=== PATIENT | female | born 1975 | race Caucasian/White ===

== ENCOUNTER 2016-09-13 22:58 | Inpatient (IN) | payer OTHER ==
[~2016-09-13] VITALS: Ht 165.1 cm; Wt 71.2 kg
[~2016-09-13 22:58] MED LIST: MULT-513 PO
[2016-09-13] MEDS ORDERED: LACTATED RINGER'S 1000ML 1,000 ML IV PRN (23:42)
[2016-09-13] MEDS ORDERED: LACTATED RINGER'S 1000ML 1,000 ML IV SCH (23:42)
[2016-09-14 00:11] VITALS: Ht 165.1 cm; Wt 71.2 kg
[2016-09-14] MEDS ORDERED: DOCO1CAP10 (00:11)
[2016-09-14 00:23] LABS: HEMATOCRIT 33.8 % (37-47); MEAN CELL VOLUME 91.6 fL (80-100); MEAN CORPUSCULAR HEMOGLOBIN 30.9 pg (25-34); MEAN CORPUSCULAR HGB CONC 33.7 g/dl (32-36); MEAN PLATELET VOLUME 10.8 fL (7.4-10.4); PLATELET COUNT 126 K/uL (130-400); RED BLOOD COUNT 3.69 M/uL (4.2-5.4); WHITE BLOOD COUNT 9.09 K/uL (4.8-10.8)
--- NOTE | 2016-09-14 01:37 | HISTORY & PHYSICAL EXAMINATION ---
DATE OF ADMISSION: 09/13/2016 CHIEF COMPLAINT: Rupture of membranes. HISTORY OF PRESENT ILLNESS: The patient is a 41-year-old 6, para 2, at 39 weeks and 3 days gestation, who presents to labor and delivery with leakage of fluid that began around 9:00 p.m. on the evening of admission. On arrival, she was grossly ruptured. She was found to be 4 cm dilated, 75% effaced, and -2 station. Clear amniotic fluid seen. She is GBS negative. Contractions are every 2-5 minutes. Her care has been uncomplicated. PAST MEDICAL HISTORY: Significant for 2 prior vaginal deliveries in 2006 and 2008 and 3 spontaneous miscarriages in 2004, 2005 and 2011. PAST SURGICAL HISTORY: She had her wisdom teeth removed. SOCIAL HISTORY: She denies tobacco, alcohol or drug use. MEDICATIONS: vitamins. ALLERGIES: CODEINE. LABORATORIES: Blood type is A negative, group B strep negative, rubella immune, hepatitis B surface antigen negative, RPR nonreactive, and HIV negative. PHYSICAL EXAMINATION: VITAL SIGNS: Blood pressure is 124/64, heart rate of 95, respiration rate of 18, temperature of 98.1. GENERAL: The patient is awake, alert and oriented x3. She is in mild to moderate distress from her contractions. HEART: Regular rate and rhythm. LUNGS: Clear to auscultation bilaterally. ABDOMEN: Gravid uterus, appropriate for gestational age. Bowel sounds present x4. EXTREMITIES: No clubbing, cyanosis or calf tenderness. VAGINA: She is 4 cm, 75% effaced, and -2 station. Clear amniotic fluid seen. heart tones are category 1. Contractions are every 2-5 minutes. ASSESSMENT AND PLAN: A 41-year-old 6, para 2, at 39 weeks and 3 days gestation, will be admitted to labor and delivery for spontaneous rupture of membranes. She currently does not want an epidural or medicine for pain control and is requesting to labor on her own. Will augment labor as needed and anticipate vaginal delivery.
[2016-09-14] MEDS ORDERED: OXYTOCIN 30 UNITS/500ML NSS IV ONE (02:17)
[2016-09-14] MEDS ORDERED: ACETAMINOPHEN 325 MG TAB PO PRN (03:15)
[2016-09-14] MEDS ORDERED: IBUPROFEN 600 MG TAB PO PRN (03:15)
[2016-09-14] MEDS ORDERED: LANOLIN OINT EXT PRN ×2 (03:15)
[2016-09-14] MEDS ORDERED: SUPERCREAM 0.870 % 15GM JAR EXT PRN (03:15)
[2016-09-14] MEDS ORDERED: OXYTOCIN 30 UNITS/500ML NSS IV PRN (03:15)
[2016-09-14] MEDS ORDERED: BENZOCAINE 20% AER SPR 82.5 GM CAN EXT PRN (03:15)
[2016-09-14] MEDS ORDERED: HYDROCORTISONE ACETATE 25 MG SUPP PR PRN (03:15)
[2016-09-14 05:45] VITALS: BP 130/55; PULSE 100; TEMP 36.7
--- NOTE | 2016-09-14 07:15 | DELIVERY SUMMARY ---
DATE OF OPERATION: 09/14/2016 TIME OF DELIVERY: 2:35 a.m. DELIVERY OF PLACENTA: 2:38 a.m. DELIVERY NOTE: The patient is a 41-year-old 6 para 2 at 39 weeks and 4 days gestation who was admitted to labor and delivery in active labor and spontaneous rupture of membranes. She progressed on her own. She did not receive an epidural for anesthesia. She reached complete dilation at 2:23 a.m. with the urge to push. She pushed to delivery at 2:35 a.m. She delivered a viable male infant in the right occiput anterior position. Nuchal cord x1 was reduced at delivery. Baby was delivered and placed on the patient's abdomen. Delayed cord clamping was performed. Cord was cut. Apgars were 8 at one minute, 9 at 5 minutes. Please see nursing notes for further baby assessment. Cord blood was then obtained and intact placenta with 3-vessel cord was delivered at 2:38 a.m. Ocytocin infusion was then begun. The lower uterine segment and vagina was cleared of any blood clots and debride. Exploration of the perineum noted a second-degree vaginal laceration which was repaired with 2-0 and 3-0 Vicryl suture in a normal fashion. Excellent hemostasis was noted. No other lacerations were seen. All sponge, instrument and needle counts were found to be correct x2. Estimated blood loss was 300 cc. Both patient and baby tolerated the delivery well and were in recovery with stable vital signs. I attest to the content of the Intraoperative Record and any orders documented therein. Any exceptio ns are noted below.
[2016-09-14] MEDS: PRENATAL VITAMIN TAB PO SCH (08:57)
[2016-09-14] MEDS: FERROUS SULFATE 325 MG TAB PO SCH (08:57)
[2016-09-14] MEDS: DOCUSATE SODIUM 100 MG CAP PO SCH ×2 (08:58→20:11)
[2016-09-14 09:00] VITALS: BP 104/65; PULSE 102; TEMP 36.3; O2SAT 98
[2016-09-14 12:30] VITALS: BP 105/65; PULSE 92; TEMP 36.8; O2SAT 97
[2016-09-14 16:15] VITALS: BP 106/67; PULSE 96; TEMP 36.8
[2016-09-14 20:30] VITALS: BP 115/69; PULSE 108; TEMP 37
[2016-09-14 23:35] VITALS: BP 109/65; PULSE 69; TEMP 36.9
[2016-09-15] MEDS ORDERED: MTR600X PO (07:04)
--- NOTE | 2016-09-15 07:05 | Discharge Instructions ---
Discharge Instructions Date of Service Sep 15, 2016. Admission Reason for Admission: Check Rupture Discharge Discharge Diagnosis / Problem: Vaginal Delivery Discharge Goals Goal(s): Routine recovery after delivery Medications Continue Dispensed Medications: supercream, dermaplast, tucks, lansinoh Activity Recommendations Activity Limitations: per Instructions/Follow-up section . Instructions / Follow-Up Instructions / Follow-Up ACTIVITY RECOMMENDATIONS: * Gradual return to full activity over the next 2-3 weeks. * No lifting - nothing heavier than baby over the next 2-3 weeks. * Do not engage in vigorous exercise, sexual activity or sports until cleared by your physician. * Do not drive or operate any motorized equipment until cleared by your physician. * You may shower/bathe daily. BREAST CARE: If you are not breast feeding: * Wear a supportive bra 24 hours a day for one to two weeks. * Avoid stimulating your breasts and nipples as much as possible during the first few weeks after delivery. * When taking a shower, have the warm water hit your back, not breasts. * When your breasts feel full, apply ice packs. Usually three to four times a day helps ease the discomfort. * Take a mild pain medication (Tylenol/Motrin) when you are uncomfortable. If breast feeding: * Use breast milk to lubricate nipples. Lansinoh cream may be used for sore nipples. You do not need to remove cream prior to breast feeding. If using a different brand of cream, check the label for directions regarding removal of cream prior to nursing. * Wear a supportive bra. * If having problems with breasts or breast feeding, call a bridal consultant or your health care provider. EPISIOTOMY CARE: After delivery, if you have an episiotomy (stitches), the following steps will ease discomfort and aid healing. * For the first 24 hours after delivery, place ice packs next to your episiotomy to help reduce swelling. * After the first 24 hour-period, sitz baths, either portable or in the tub, are suggested. A shower with a shower arm sprayed over the episiotomy may be comforting. * Stacy care should be done after each voiding and bowel movement. Squirt warm water from a plastic bottle over the perineum (region of the body between the anus and urinary opening) and pat dry. * Use Dermoplast to ease discomfort. Shake container. [place] directly over the episiotomy. * Place a Tucks on a clean sanitary pad next to your episiotomy. OVER THE COUNTER MEDICATION: * For discomfort or pain, you may use Acetaminophen (Tylenol), Ibuprofen (Advil ), or Naproxen (Aleve) following the package directions. * For constipation you may use Colace following the package directions. SPECIAL CARE INSTRUCTIONS: When you are discharged from the hospital, it is important for you to follow the instructions listed below: * During the first week at home, you should be able to care for yourself and your baby. In addition, the usual light household activities are encouraged. * Limit your activities to the way you feel. Do not try to clean the house or move furniture. Be sensible. * If you actively engage in sports and have done so up until the time of your delivery, you may resume these activities as soon as you feel able. This may take up to one month or even longer. Use good judgment. * Continue to take your vitamins for at least six weeks after the of your baby. * Your diet need not be limited unless you were on a special diet before your delivery. Breast-feeding mothers need around 2500 calories per day and at least 64-80 ounces of fluid per day (8 to 10 glasses). * You should eat foods from the four major food groups. Crash diets or fad diets are to be avoided. Eating lean meats, fresh fruits and vegetables, low-fat dairy products, high fiber foods and a regular exercise program, will help you get back to your pre- weight without putting your health at risk. * Constipation is sometimes a problem after delivery. Take a mild laxative as needed. If breast feeding, Milk of Magnesia is acceptable to use. You may use a suppository or Fleets enema if no episiotomy. * A daily shower or tub bath is suggested. Be sure to thoroughly and gently dry the perineum. * A bloody vaginal discharge will usually continue until around four weeks post . A small amount of bleeding may continue for as long as six weeks. Vaginal discharge changes from the bright red bleeding after delivery to pink then brownish and finally yellowish-pink before becoming white and disappearing. * Bleeding may increase with activity. Your first period may come in 4-8 weeks. If you are breast feeding, your period may be delayed even longer. * [place] (sex) can begin whenever both you and your partner feel comfortable and do not have any form of genital infection. It is recommended that you wait until after your return appointment and discuss with your physician. If you have questions, please talk to your health care practitioner. A condom should be used to prevent infection and . * Foreplay, gentle intercourse and lubrication is very important the first several times to prevent pain. A water-based lubricant such as K-Y jelly or Astroglide may be used. * Tampons may be used six weeks after delivery. * Douching should be avoided for 6 weeks after delivery. * If you have RH negative blood and your baby is RH positive, you will receive RHOGAM by injection prior to discharge. The nurse will give you a card to keep with you that has the date and place that you received RHOGAM after delivery. * During your care, you had a Rubella screen done to check for the presence of rubella antibodies in your blood. If your test was negative, you will receive a Rubella vaccine prior to discharge. This vaccine may cause a fever, soreness at the injection site and flu-like symptoms. If these symptoms persist, notify your health care practitioner. is not advised for three months after a Rubella vaccine. There is a higher chance of having a baby with defects if conceived within three months of getting the vaccine. * If you were discharged 24 hours from delivery or before 48 hours: Visiting nurses will come to your home 48 hours after discharge to assess you and your baby. The visiting nurse will meet with you while you are in the hospital to arrange a time and get directions to your home. * Verbalizes understanding of car seat law as reviewed with patient nursing. * Car Seat hand-out given and reviewed with patient by nursing. * Shaken baby information reviewed with patient by nursing. Call you doctor if: * Heavy bleeding (saturating several pads an hour) or passing clots the size of your fist. * A fever >101 degrees F (38.3 degrees C) on two occasions four hours apart and/or chills. * Unusual pain in the pelvic or vaginal areas. * "Baby Blues" lasting longer than two weeks. If you have any questions or concerns, call your health care practitioner at . FOLLOW-UP VISIT: * Please call the office at to schedule a 6 week examination. It is important you keep this appointment. * It is important for you to make arrangements for either yearly or twice yearly check-ups thereafter. Current Hospital Diet Patient's current hospital diet: Regular OB Diet Discharge Diet Recommended Diet: Regular OB Diet Pending Studies Studies pending at discharge: no Medical Emergencies . Who to Call and When: Medical Emergencies: If at any time you feel your situation is an emergency, please call 911 immediately. . Non-Emergent Contact Non-Emergency issues call your: Primary Care Provider, [place] Operator . . "Provider Documentation" section prepared by Nathan Richard. . VTE Core Measure Inpt VTE Proph given/why not?: Treatment not indicated
--- NOTE | 2016-09-15 07:13 | OB/GYN Progress Note ---
[facility] Progress Note Date of Service Sep 15, 2016. Subjective conversation w/ patient, physical exam Ambulation: ambulating normally Voiding: no voiding problems Passing Gas: Yes Diet Tolerance: Regular Diet Lochia: Moderate Feeding Type: Breast Feeding Pain: 3/10 Notes: Doing well, no concerns. Pain well controlled. Lochia moderate. Tolerating regular diet. Ambulating without difficulty. Objective Vital Signs Date Time Temp Pulse Resp B/P Pulse Ox O2 Delivery O2 Flow Rate FiO2 09/14/16 23:35 36.9 69 18 109/65 Room Air 09/14/16 23:35 Room Air 09/14/16 20:30 37.0 108 20 115/69 Room Air 09/14/16 16:15 36.8 96 16 106/67 Room Air 09/14/16 16:15 Room Air 09/14/16 12:30 36.8 92 18 105/65 97 Room Air 09/14/16 09:00 36.3 102 20 104/65 98 Room Air 09/14/16 09:00 Room Air Physical Exam General Appearance: WELL-APPEARING Respiratory/Chest: chest non-tender, lungs clear Cardiovascular: regular rate, rhythm Abdomen: normal bowel sounds, soft Fundus: Firm Extremities: normal range of motion, non-tender, no calf tenderness Laboratory Results Last 24 Hours Test 09/15/16 06:39 Assessment and Plan Post- Day Number: 1 Continue Routine Care: -D/C home later today -F/U in 6 weeks
[2016-09-15 07:21] LABS: HEMATOCRIT 28.8 % (37-47)
[2016-09-15 07:45] VITALS: BP 107/66; PULSE 92; TEMP 36.9; O2SAT 98
[2016-09-15] MEDS ORDERED: DIPHTHERIA/TETANUS/PERTUSSIS 0.5 ML SYR/VIAL IM. ONE (09:00)
[2016-09-15] MEDS: FERROUS SULFATE 325 MG TAB PO SCH (09:04)
[2016-09-15] MEDS: DOCUSATE SODIUM 100 MG CAP PO SCH (09:04)
[2016-09-15] MEDS: PRENATAL VITAMIN TAB PO SCH (09:04)
[2016-09-15 16:15] VITALS: BP 103/63; PULSE 92; TEMP 36.8; O2SAT 98
[2016-09-15 19:00] VITALS: BP_DIAS 66; PULSE 92; TEMP 36.9
[2016-09-15] MEDS ORDERED: BISACODYL 5 MG TABEC PO SCH (20:00)
[2016-09-16] MEDS ORDERED: BISACODYL 10 MG SUPP PR PRN (07:00)
== END 2016-09-15 20:00 | disposition home or self-care (01) | DRG 775 ==
LOC: C.LD 22:58 → C.OPB 22:58 → C.LD 23:43 → C.OPB 23:43 → C.OBG 09-14 05:50
PROVIDERS: ADMIT Obstetrics & Gynecology; ATTEND Obstetrics & Gynecology
PROC: 10E0XZZ Delivery of Products of Conception, External Approach (ICD-10-PCS; principal; 2016-09-14)
PROC: 0KQM0ZZ Repair Perineum Muscle, Open Approach (ICD-10-PCS; principal; 2016-09-14)
DX: O70.1 Second degree perineal laceration during delivery (principal); O69.81X0 Labor and delivery complicated by cord around neck, without compression, not applicable or unspecified; Z37.0 Single live birth; Z3A.39 39 weeks gestation of pregnancy

== ENCOUNTER 2019-07-03 03:21 | Inpatient (IN) ==
[2019-07-03] MEDS ORDERED: OXYTOCIN 30 UNITS/500 ML BAG IV PRN ×3 (04:09→12:31)
[2019-07-03 04:35] LABS: Hematocrit (blood only) 34.7 % (37-47); Hemoglobin 12.2 g/dL (12.0-16.0); Mean Corpuscular Hemoglobin 31.3 pg (25-34); Mean Platelet Volume 10.5 fL (7.4-10.4); Platelet Count 155 K/uL (130-400); RDW Coefficient of Variation 14.5 % (11.5-14.5); RDW Standard Deviation 47.1 fL (36.4-46.3); White Blood Count 9.16 K/uL (4.8-10.8)
[2019-07-03 04:42] LABS: Mean Corpuscular Hgb Conc 35.2 g/dL (32-36)
[2019-07-03] MEDS: LACTATED RINGER'S 1,000 ML IV PRN ×2 (05:40→06:48)
[2019-07-03] MEDS ORDERED: BUPIVACAINE 0.25% 30 ML VIAL ONE (05:46)
[2019-07-03] MEDS ORDERED: fentaNYL citrate 100 MCG/2 ML VIAL ONE (05:46)
[2019-07-03] MEDS ORDERED: ePHEDrine sulfate 50 MG/ML AMP ONE (05:46)
[2019-07-03] MEDS ORDERED: fentaNYL 2MCG/ML ROPIV 1.25MG/ML 100 ML BAG EPI ONE (05:47)
--- NOTE | 2019-07-03 06:21 | Anesthesiology Consultation ---
Date of Service July 03, 2019 Assessment & Plan Chart Review Chart Review: Acceptable Risk for Labor Epidural Consults Requested none History Height/Weight Height: 5 ft 5 in Weight: 151 kg Allergies Allergy/AdvReac Type Severity Reaction Status Date / Time codeine Allergy Unknown allergic Verified 07/03/19 03:48 at Medications Home Medications Medication Instructions Recorded Confirmed Last Taken PNV cmb#95-ferrous fumarate-FA 1 tab PO DAILY 07/03/19 07/03/19 07/02/19 20:00 [] Active Medications Generic Name Dose Route Start Last Admin Trade Name Freq PRN Reason Stop Dose Admin Lactated Ringer's 1,000 mls @ 125 mls/hr 07/03/19 04:09 07/03/19 05:40 Lr IV 07/05/19 04:08 999 mls/hr .Q8H PRN Administration L&D Protocol Protocol Past Medical History Medical History 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
[2019-07-03] MEDS ORDERED: DiphenhydrAMINE HCL 50 MG/ML VIAL IV PRN (06:22)
[2019-07-03] MEDS ORDERED: NALOXONE HCL 0.4 MG/1 ML VIAL/CARP IV PRN (06:22)
[2019-07-03] MEDS ORDERED: ePHEDrine sulfate 50 MG/ML AMP IV PRN (06:22)
[2019-07-03] MEDS ORDERED: fentaNYL 2MCG/ML ROPIV 1.25MG/ML 100 ML BAG EPI PRN (06:22)
[2019-07-03] MEDS ORDERED: NALOXONE HCL 1 MG in SODIUM CHLORIDE 0.9% 1000ML 1,000 ML IV PRN (06:22)
[2019-07-03] MEDS ORDERED: OXYCODONE/ACETAMINOPHEN 5mg/325mg TAB PO PRN (12:31)
[2019-07-03] MEDS ORDERED: BENZOCAINE 20% AER SPR 82.5 GM CAN EXT PRN (12:31)
[2019-07-03] MEDS ORDERED: ACETAMINOPHEN 325 MG TAB PO PRN (12:31)
[2019-07-03] MEDS ORDERED: IBUPROFEN 600 MG TAB PO PRN (12:31)
[2019-07-03] MEDS ORDERED: bisacodyL 10 MG SUPP PR PRN (12:31)
[2019-07-03] MEDS ORDERED: HYDROCORTISONE ACETATE 25 MG SUPP PR PRN (12:31)
[2019-07-03] MEDS ORDERED: DIPHTHERIA/TETANUS/PERTUSSIS 0.5 ML SYR/VIAL IM ONE (12:31)
[2019-07-03] MEDS ORDERED: SUPERCREAM 0.870% 15 GM JAR EXT PRN (12:31)
[2019-07-03] MEDS ORDERED: ACETAMINOPHEN W/CODEINE #3 1 TAB PO PRN (12:31)
--- NOTE | 2019-07-03 13:15 | Operative Report ---
DATE OF OPERATION: 07/03/2019 She is a 9, para 4. Blood type is O negative, group B strep negative, was brought in for induction secondary to advanced maternal age, actually came in before she was scheduled for the induction with ruptured membranes at about 3 cm, received epidural and after the epidural was effective, she was given IV Pitocin. With the IV Pitocin, she established a regular labor pattern and delivered a live via direct occiput anterior position over an intact perineum. She had some terminal bradycardia which was secondary to a cord which was wrapped around the one shoulder. After delivery of the suctioned through the mouth and the nose after the head was delivered via the cord was clamped, cut and the was handed off to the mother. Cord blood was taken. With IV Pitocin running, the placenta was removed intact. Inspection of the perineum revealed a first degree laceration at about 5 o'clock. This was repaired anatomically with heavy Vicryl. The vaginal mucosa was approximated with continuous heavy Vicryl suture beyond the hymenal ring. A deep suture was used to approximate the bulbocavernosus muscle, separate deep suture was used to approximate the perineal body and then a running subcuticular suture used to approximate the perineal skin edges. Following this, vag exam including rectovaginal examination revealed no hematoma formation or stitches through the rectum. Estimated blood loss was 200 mL. Apgars deferred to the nurses. I attest to the content of the Intraoperative Record and any orders documented therein. Any exception s are noted below.
--- NOTE | 2019-07-03 16:10 | Anesthesia Procedure Note ---
Date of Service July 03, 2019 Anesthesia Post Epidural Note Vital Signs Vital Signs: Temp Pulse Resp BP Pulse Ox 36.7 C 115 H 20 100/59 L 97 07/03/19 15:30 07/03/19 15:28 07/03/19 15:30 07/03/19 15:28 07/03/19 12:16 Notes Mental Status: alert / awake / arousable and participated in evaluation Nausea / Vomiting: adequately controlled Pain: adequately controlled Airway Patency, RR, SpO2: stable & adequate BP & HR: stable & adequate Hydration State: stable & adequate Neuraxial Anesthesia: was administered and sensory block is resolving Anesthetic Complications: no major complications apparent and Pt Satisfied with anesthetic care Epidural: Removed without complications and With tip intact Notes: Epidural pulled by Rusty Iglesias CRNA with tip intact under my direction.
[2019-07-03] MEDS: DOCUSATE SODIUM 100 MG CAP PO SCH (20:32)
[2019-07-04 06:42] LABS: Hemoglobin 10.3 g/dL (12.0-16.0); Mean Corpuscular Hemoglobin 31.5 pg (25-34); Mean Corpuscular Hgb Conc 34.3 g/dL (32-36); Mean Corpuscular Volume 91.7 fL (80-100); Mean Platelet Volume 10.5 fL (7.4-10.4); Platelet Count 122 K/uL (130-400); RDW Coefficient of Variation 14.8 % (11.5-14.5); RDW Standard Deviation 49.1 fL (36.4-46.3); Red Blood Count 3.27 M/uL (4.2-5.4); White Blood Count 9.68 K/uL (4.8-10.8)
[2019-07-04] MEDS: PRENATAL VITAMIN 1 TAB PO SCH (08:45)
[2019-07-04] MEDS: DOCUSATE SODIUM 100 MG CAP PO SCH ×2 (08:45→21:56)
--- NOTE | 2019-07-04 10:36 | Obstetrical Progress Note ---
Date of Service July 04, 2019 Assessment & Plan (1) normal course: A/p PPD #1 pt doing well'antiicpate disch this PM Subjective Ambulation: ambulating normally Voiding: no voiding problems Passing Gas:: Yes Diet Tolerance:: regular diet Lochia:: Small Feeding Type:: breast feeding Review of Systems All systems reviewed & are unremarkable except as noted in HPI & below Physical Exam Constitutional WD/WN, vitals as above well developed and well nourished Eyes PERRL, conjunctivae normal, anicteric sclerae Neck trachea midline, no thyromegaly Respiratory normal respiratory effort, lungs clear to auscultation Auscultation: no crackles, no rales and no wheezes Cardiovascular RRR, no murmur, no edema Gastrointestinal (Abdomen) normal bowel sounds, soft, nontender, no hepatosplenomegaly Uterus is below umbilicus Musculoskeletal no cyanosis or clubbing, extremities motor strength 5/5 Skin no rashes, warm and dry Neurologic patellar DTR's 2+ bilat, sensation intact Psychiatric A+Ox3, euthymic affect Genitourinary normal external appearance Results & Data Vital Signs (Past 12 Hours) Vital Signs Temp Pulse Resp BP 07/04/19 08:10 36.4 C L 82 20 101/63 07/04/19 04:25 36.8 C 90 16 109/67 07/03/19 23:35 36.6 C 73 18 98/60 L
[2019-07-04] MEDS ORDERED: bisacodyL 5 MG TABEC PO SCH (20:00)
[2019-07-05 05:56] LABS: Hemoglobin 10.2 g/dL (12.0-16.0)
[2019-07-05] MEDS: DOCUSATE SODIUM 100 MG CAP PO SCH (07:50)
[2019-07-05] MEDS: PRENATAL VITAMIN 1 TAB PO SCH (07:50)
--- NOTE | 2019-07-05 11:15 | Obstetrical Progress Note ---
Date of Service July 05, 2019 Assessment & Plan Admission and Anticipated Discharge Date Admission Date: July 03, 2019 Subjective Patient is seen and examined. She feels well, no complaints. Ambulating without dizziness Voiding without difficulty Tolerating regular diet with out N&V Bleeding is minimal No fever/ chills/ CP/ SOB/ N&V/ Leg pain Breast feeding without problems Vital Signs Temp Pulse Resp BP Pulse Ox 07/05/19 08:10 36.3 C L 90 16 103/62 98 07/05/19 00:00 36.5 C 88 17 111/75 97 07/04/19 21:35 36.4 C L 82 16 110/67 97 07/04/19 17:00 36.6 C 85 18 113/65 97 07/04/19 12:27 36.5 C 81 20 100/62 97 Lab Results 07/03/19 07/04/19 07/05/19 Range/Units 04:25 06:30 05:34 WBC 9.16 9.68 (4.8-10.8) K/uL RBC 3.90 L 3.27 L (4.2-5.4) M/uL Hgb 12.2 10.3 L 10.2 L (12.0-16.0) g/dL Hct 34.7 L 30.0 L 30.0 L (37-47) % MCV 89.0 91.7 (80-100) fL MCH 31.3 31.5 (25-34) pg MCHC 35.2 34.3 (32-36) g/dL RDW Std Deviation 47.1 H 49.1 H (36.4-46.3) fL RDW Coeff of [place] 14.5 14.8 H (11.5-14.5) % Plt Count 155 122 L (130-400) K/uL MPV 10.5 H 10.5 H (7.4-10.4) fL PE: General: Alert, orientedx3, NAD Abd: soft, NT, fundus firm, below Umbilicus Perineum intact, Lochia rubra minimal Ext; NT, no edema AP: 44 yo s/p , ppd# 2 VSS Afebrile doing well Continue routine care All questions were answered D/C home , f/u in office Results & Data ([facility]) Vital Signs (Past 12 Hours) Vital Signs Temp Pulse Resp BP Pulse Ox 07/05/19 08:10 36.3 C L 90 16 103/62 98 07/05/19 00:00 36.5 C 88 17 111/75 97
== END 2019-07-05 13:35 | disposition home or self-care (01) | DRG 807 ==
LOC: 4S1 03:21 → 4S2 17:02